=== PATIENT | female | born 1990 | race Asian ===

== ENCOUNTER 2021-09-29 12:14 | Emergency (ER) | payer MEDICAID ==
[~2021-09-29] VITALS: Ht 152.4 cm; Wt 86.8 kg
[2021-09-29 14:30] VITALS: BP 122/76
[2021-09-29] MEDS ORDERED: IBUP-2070 PO (14:46)
== END 2021-09-29 15:02 | disposition home or self-care (01) ==
LOC: EMS 12:16
DX: M72.2 Plantar fascial fibromatosis (principal); F31.9 Bipolar disorder, unspecified; I10 Essential (primary) hypertension; Z91.041 Radiographic dye allergy status
CPT/HCPCS: 99282; Z7502

== ENCOUNTER 2024-11-18 22:11 | Emergency (ER) | payer MEDICAID ==
[~2024-11-18] VITALS: Ht 152.4 cm; Wt 75.5 kg
[~2024-11-18 22:11] MED LIST: IBUP-1492 PO
[2024-11-19 00:50] VITALS: TEMP 97.8
[2024-11-19] MEDS: MOXIFLOXACIN HCL 0.5% 3 ML OPHTHALMIC SOLUTION OS ONE (01:39)
[2024-11-19 02:15] VITALS: BP 127/74; PULSE 75; RESP 18; O2SAT 100
== END 2024-11-19 03:08 | disposition home or self-care (01) ==
LOC: EMS 22:11
DX: H10.89 Other conjunctivitis (principal); I10 Essential (primary) hypertension; J45.909 Unspecified asthma, uncomplicated; F31.9 Bipolar disorder, unspecified; Z90.49 Acquired absence of other specified parts of digestive tract
CPT/HCPCS: 99283